=== PATIENT | male | born 1960 | race Caucasian/White ===

== ENCOUNTER → 2020-09-11 | Outpatient (CLI) | payer OTHER ==
[~2020-09-11] MED LIST: CLEOCIN HCL300 MG PO; FLOMAX0.4 MG PO; NORCO 5-325 TA1 EACH PO; PERCOCET 5-3251 EACH PO; PHENERGAN 12.12.5 M1 PO; PREDNISONE20 MG PO; TORADOL 10 MG T10 MG PO; ZOFRAN4 MG PO
== END ==
LOC: KOH-I 10:30
DX: F17.210 Nicotine dependence, cigarettes, uncomplicated (principal); R91.8 Other nonspecific abnormal finding of lung field
CPT/HCPCS: 71271

== ENCOUNTER 2021-06-04 18:04 | Emergency (ER) | payer OTHER ==
[2021-06-04 18:58] LABS: HEMOGLOBIN 15.4 gm/dl (14.0-17.5); RED BLOOD COUNT 4.67 M/UL (4.20-5.50); WHITE BLOOD COUNT 13.2 K/UL (4.5-11.0)
[2021-06-04 19:25] LABS: BUN/CREATININE RATIO 8 (0-10)
[2021-06-04] MEDS ORDERED: PREDNISONE 20 M20 MG PO (21:43)
== END 2021-06-04 21:55 | disposition home or self-care (01) ==
LOC: ER1 18:04
PROVIDERS: Emergency Medicine
DX: R06.02 Shortness of breath (principal); R53.1 Weakness; I10 Essential (primary) hypertension; E78.5 Hyperlipidemia, unspecified
CPT/HCPCS: 71045; 80053; 82550; 82553; 84484; 85025; 93005; 99285

== ENCOUNTER → 2021-09-12 | Outpatient (CLI) | payer OTHER ==
[~2021-09-12] MED LIST changes: +PREDNISONE 20 M20 MG PO
== END ==
LOC: KOH-I 12:13
DX: F17.210 Nicotine dependence, cigarettes, uncomplicated (principal)
CPT/HCPCS: 71271

== ENCOUNTER → 2021-09-26 | Outpatient (CLI) | payer OTHER | LOC: KOH-I 10:54 | DX: Q44.7 Other congenital malformations of liver (principal); N28.9 Disorder of kidney and ureter, unspecified | CPT/HCPCS: 76700 ==